=== PATIENT | male | born 1940 | race Caucasian/White ===

== ENCOUNTER → 2023-01-24 08:00 | Outpatient (REF) | payer MEDICARE, OTHER, SELFPAY | LOC: WOUND 08:00 | PROVIDERS: ATTENDING PHYSICIAN Surgery; REFERRING PHYSICIAN Family Medicine | DX: E11.621 Type 2 diabetes mellitus with foot ulcer (principal); L97.525 Non-pressure chronic ulcer of other part of left foot with muscle involvement without evidence of necrosis; E11.622 Type 2 diabetes mellitus with other skin ulcer; L97.825 Non-pressure chronic ulcer of other part of left lower leg with muscle involvement without evidence of necrosis; L97.225 Non-pressure chronic ulcer of left calf with muscle involvement without evidence of necrosis; Z79.01 Long term (current) use of anticoagulants; Z79.52 Long term (current) use of systemic steroids; Z86.73 Personal history of transient ischemic attack (TIA), and cerebral infarction without residual deficits; Z95.1 Presence of aortocoronary bypass graft | CPT/HCPCS: 11042; 29581; 97597 ==

== ENCOUNTER 2023-12-05 22:17 | Inpatient (IN) | payer MEDICARE, OTHER, SELFPAY ==
[2023-12-05 13:24] VITALS: BP 137/83
[2023-12-05 13:50] LABS: % Basophils 0.4 % (0-2); % Immature Granulocytes 0.6 % (0-0.5); % Lymphocytes 4.9 % (20.5-51.1); % Monocytes 8.5 % (1.7-9.3); % Neutrophils 85.6 % (42.2-75.2); Absolute Basophils 0.1 10^3/uL (0-0.2); Absolute Immature Granulocytes 0.2 10^3/uL (0-0.05); Absolute Lymphocytes 1.2 10^3/uL (1.2-3.4); Absolute Neutrophils 20.4 10^3/uL (1.4-6.5); Hematocrit 41.5 % (39.0-52.0); Hemoglobin 15.1 g/dL (13.0-18.0); Mean Corp Hgb Conc. 36.4 g/dL (33.0-37.0); Mean Corpuscular Hgb 31.6 pg (27.0-31.0); Mean Corpuscular Volume 86.8 fL (80.0-94.0); Mean Platelet Volume 9.4 fL (7.4-10.4); Nucleated Red Blood Cells % 0 % (-); Platelet Count 262 10^3/uL (130-400); Red Blood Cell Count 4.78 10^6/uL (4.70-6.10); White Blood Cell Count 23.9 10^3/uL (4.8-10.8)
[2023-12-05 14:03] LABS: ALT (SGPT) 29 U/L (0-50); AST (SGOT) 29 U/L (17-59); Albumin 3.9 g/dl (3.5-5.0); Alkaline Phosphatase 92 U/L (38-126); Blood Urea Nitrogen 22 mg/dl (9-20); Calcium 9.5 mg/dl (8.4-10.2); Carbon Dioxide 29 mmol/L (22-30); Chloride 99 mmol/L (98-107); Glucose 170 mg/dl (70-99); Potassium 3.7 mmol/L (3.5-5.1); Sodium 136 mmol/L (135-145); Total Bilirubin 0.5 mg/dl (0.2-1.3); Total Protein 6.9 g/dl (6.3-8.2); eGFR > 60.00
[2023-12-05 14:43] LABS: Urine Albumin 1+ (Neg - Trace); Urine Bilirubin Negative (Negative); Urine Character Clear (Clear); Urine Color Yellow; Urine Glucose Negative (Negative); Urine Ketone Trace (Negative); Urine Leukocyte 1+ (Negative); Urine Nitrite Negative (Negative); Urine Occult Blood 2+ (Negative); Urine Urobilinogen Negative (Neg - 1+)
[2023-12-05 15:49] LABS: Urine Mucus Few
[2023-12-05 15:50] LABS: Urine Bacteria Few (Negative)
[2023-12-05 16:20] VITALS: BP 135/77
[2023-12-05 20:12] VITALS: BMI 34.2
--- NOTE | 2023-12-05 20:17 | ED.GENMED ---
History of Present Illness
General
Chief Complaint: Back Pain
Source: patient
Exam Limitations: none
Time Seen by Provider: 12/05/23 19:29
Travel History
Have you had any contact with someone who has COVID-19?: No
Do you have any symptoms of coronavirus? Fever > 100 degrees, chills, cough, shortness of breath, sore throat, loss of taste or smell, muscle aches, or headache?: No
History of Present Illness
History of Present Illness:
This is a 83 year old male that comes in with c/o pain in the right low back. States that 3 weeks [place] there for 2 days. States that he was sitting on a metal chair. States that he is not sure if he got up enough as
he started with pain in his Hamstring. States that this moved down into the right calf and then to the low back. States that it just kept moving around. Then he got severe pain in his lower abd/groin. States that the pain was the worse the other
night like he was having a baby. States that know he feels lik he is having trouble keeping his urine flowing. States that he has had a fever on and off, Abd pain, diarrhea. Denies any chills, chest pain, SOB, nausea, vomiting, headache, dizziness,
urinary burning.
Past History
Past History
ED Past Medical History: CVA, HTN, Hypercholesterolemia, NIDDM, [place], Hypothyroidism and Other (Glaucoma, DVT, Necrotizing Fas LLE)
ED Past Surgical History: Cardiac (CABG, ), Tonsilectomy and Other (Sinus surgery, Necrotizing Fas LLE with multiple surgery)
Social History
Tobacco: Non-smoker
Alcohol: None
Personal:
Living: with family
Employment: Retired
Family History
Family History: Other (Noncontributory)
Review of Systems
Review of Systems
All Other Systems: ROS reviewed and negative except as documented in HPI and ROS
Constitutional: Reports fever (on and off); Denies chills
EENT: Reports no symptoms
Respiratory: Reports no symptoms; Denies cough or trouble breathing
Cardiac: Reports no symptoms; Denies chest pain
ABD/GI: Reports abdominal pain and diarrhea; Denies nausea or vomiting
: Reports difficulty voiding; Denies dysuria, frequency or urgency
Musculoskeletal: Reports back pain (Low right sided back pain into right leg)
Skin: Reports no symptoms
Neurological: Reports no symptoms; Denies dizzy or headache
Psychiatric: Reports no symptoms
Phy Exam
General Physical Exam
General Presentation: no apparent distress
General age: appears stated age
General Skin: other (Clammy)
General Habitus: elderly
General Mental: alert
General Hydration: appears well hydrated
ENT Exam
ENT Exam: TM's normal, pharynx normal and neck supple
Eye Exam
Eye Exam: EOMI
Cardiovascular Exam
Cardiovascular Exam: regular rate/rhythm and normal peripheral pulses
Pulmonary Exam
Pulmonary Exam: lungs clear, no respiratory distress, no rales, chest non tender, no crackles, no rhonchi, no wheezing and no cough
Gastrointestinal Exam
Gastrointestinal Exam: normal bowel sounds, non tender, soft, no organomegaly, no pulsatile mass and non distended
Musculoskeletal Exam
Musculoskeletal Exam: full ROM and edema (Left lower leg chronic)
Skin Exam
Skin Exam: normal color, no petechia and other (Clammy)
Psychiatric Exam
Psychiatric Exam: normal mood/affect
Course
Orders/Labs/Results
Orders:
Orders
12/05/23 13:33
Complete Blood Count/With Diff Urgent
Comprehensive Metabolic Panel Urgent
12/05/23 14:34
Urinalysis Reflex To Culture Urgent
Date Specimen was Collected: 12/05/23
Time Specimen was Collected: 14:29
Urine Microscopic Reflex Cult Urgent
Urine Culture Urgent
DESTINEE Source: U
Specimen Description:
Date Specimen was Collected: 12/05/23
Time Specimen was Collected: 14:29
12/05/23 20:16
CT Abd/pel Without Iv Or Oral Urgent
Comment:
Reason For Exam: Right sided pain
0.9% Sodium Chloride 1000 ml [Nss] 1,000 ml IV BOLUS
12/05/23 20:22
Lactic Acid Urgent
Blood Culture Q30M
DESTINEE Source: Blood/Venous
Specimen Description:
Blood Culture Q30M
DESTINEE Source: Blood/Venous
Specimen Description:
12/05/23 20:30
CefTRIAXone [Rocephin] 1,000 mg IV NOW STA
12/05/23 21:20
Consult Urology [UROLOGY CONSULT] Urgent
Consulting Provider: Yoel Morrissey
Was physician already notified: Yes
12/05/23 21:47
Admit/Transfer Patient As Directed
Co-Sign Provider:
Level of Care: Inpatient admission
Assign to:: Medical/Surgical
Physician / Group: [facility]
Diagnosis: UTI/Prostatitis
Reason for Hospitalization: IV abx
Expected length of stay greater than two midnights?: Yes
ELOS- Estimated Length of Stay in days: 3
I certify the patient meets the requirements for IP care: Yes
12/05/23 21:54
Code Status As Directed
Resuscitation Status: Full Code
12/06/23 00:22
0.9% Sodium Chloride 1000 ml [Nss] 1,000 ml IV 100 mls/hr
Acetaminophen [Tylenol] 650 mg PO Q4HPRN PRN
Dextrose 50%-Water [Dextrose 50% Syringe] 12.5 grams IV [id number] PRN
Glucagon [GlucaGen] 1 mg IM PRN PRN
12/06/23 00:22
Activity As Directed
Activity Level: Out of Bed-Early Mobility
With Assistance
Bedside Glucose Monitoring As Directed
Frequency: AC&HS
Additional Instructions:: Change to q6h if pt on TPN, tube feeding or not eating
Bladder Scan As Directed
Follow Bladder Retention/Intermittent Cath Algorithm?: Yes
PRN if no void in __ hours: 6
Frequency: Per Retention Algorithm
If Bladder Scan Result >: 400
then:: Straight cath
I&O [Intake/ Output] As Directed
Frequency: q12h
Straight Cath As Directed
Frequency: Per Retention Algorithm
Additional Instructions: straight cath as needed per acute urinary retention algorithm for 24 hrs
Additional Instructions: for bladder scan greater than 400 mL
Vital Signs As Directed
Frequency: Per unit guidelines
Weight As Directed
Frequency: Daily
12/06/23 06:00
Basic Metabolic Panel IN AM
Complete Blood Count/No Diff IN AM
Glycohemoglobin (HgbA1c) IN AM
Levothyroxine [Synthroid] 88 mcg PO DAILY@0600
12/06/23 07:30
Insulin Aspart Corrective Low [Novolog Flexpen-Low Resistance] See Protocol SC AC
12/06/23 08:00
Amlodipine [Norvasc] 5 mg PO DAILY
Apixaban [Eliquis] 5 mg PO BID
Ascorbic Acid [Vitamin C] 500 mg PO BID
Escitalopram Oxalate [Lexapro] 5 mg PO DAILY
Hydroxychloroquine [Plaquenil] 400 mg PO DAILY
Metoprolol [Lopressor] 25 mg PO BID
Rosuvastatin Calcium [Crestor] 5 mg PO DAILY
Tamsulosin [Flomax] 0.4 mg PO DAILY
Timolol Maleate/Dorzolam HCl [Cosopt Eye Drops] 1 drop LEFT EYE BID
12/06/23 Dinner
2000 calorie (17 carb) Diabetic
12/06/23 20:00
CefTRIAXone [Rocephin] 1,000 mg IV Q24H
Abnormal Lab Results
12/05/23 12/05/23
13:33 14:34
WBC 23.9 H 10^3/uL
(4.8-10.8)
MCH 31.6 H pg
(27.0-31.0)
Abs Immat Gran (auto) 0.2 H 10^3/uL
(0-0.05)
Absolute Neuts (auto) 20.4 H 10^3/uL
(1.4-6.5)
Absolute Monos (auto) 2.0 H 10^3/uL
(0.1-0.6)
Immature Gran % 0.6 H %
(0-0.5)
Neutrophils % 85.6 H %
(42.2-75.2)
Lymphocytes % 4.9 L %
(20.5-51.1)
BUN 22 H mg/dl
(9-20)
Glucose 170 H mg/dl
(70-99)
Urine Ketones Trace A
(Negative)
Ur Occult Blood Reflex 2+ A
(Negative)
Leukocyte Esterase Rfl 1+ A
(Negative)
Urine RBC 3-6 A /HPF
(0-2)
Urine WBC (Reflex) 11-15 A /HPF
(0-5)
Urine Bacteria (Reflex) Few A
(Negative)
Urine Albumin (Reflex) 1+ A
(Neg - Trace)
12/05/23 13:33
12/05/23 13:33
Leukocytosis, Dehydration. Glucose nonfasting. Urinary tract infection. Lactic acid 1.6,
Vital Signs
Initial and Last Documented VS:
Initial Vital Signs
Temp Pulse Resp BP Pulse Ox
97.9 F 93 18 137/83 96
12/05/23 13:24 12/05/23 13:24 12/05/23 13:24 12/05/23 13:24 12/05/23 13:24
Last Documented Vital Signs
Temp Pulse Resp BP Pulse Ox
98.7 F 100 14 149/84 96
12/06/23 00:33 12/06/23 00:33 12/06/23 00:33 12/06/23 00:33 12/06/23 01:20
MDM/Problems Addressed
Differential Diagnosis Includes:
Renal calculus, UTI
MDM/Problems Addressed:
This is a 83 year old male that comes in with c/o low back pain/abd pain and right leg pain. States that the pain [place] 2 [place]. States that the pain started in the right low back and then moved to the right leg,
calf and then to the lower abd/groin. States that he has fever on and off
Will get labs, give IV fluids. Urine and get CT scan to r/o renal calculus.
Back into see patient. Explained that his CT shows that he has a 1mm stone on the left ureter. Patient has Leukocytosis and his urine does look infected. Patient has been running a fever. Will admit patient. Hosptialst and Urologist notified. Will
give IV antibiotics.
Chronic conditions affecting care: DM
Acute Exacerbation and/or Progression of Chronic Illness:
NA
*Radiology
Radiology exam reviewed: radiology read reviewed (CT-1mm nonobstructing left renal stone. Moderate fecal material in the colon. MIld diverticulosis. Moderate prostate hypertrophy. Mild diffuse bladder wall thickening possibly partially due to
limited distention. Cystitis and bladder outlet obstruction cannot be excluded. )
*Critical Care Note
Total Time (30-74mins, 75-104mins- exclusive of procedures): Not Applicable
ED Attending Note
-
Portions of this chart may have been created with voice recognition software.� Occasional wrong word or��sound alike� substitutions may have occurred due to the inherent limitations of voice recognition software.
Discharge Plan
Departure
Patient Disposition: Admit
Date of Disposition: 12/05/23
Time of Disposition: 21:23
Admit to: Med/Surg
Presentation/result/management discussed w/ accepting MD/DO: Hospitalist
Patient with high blood pressure during this ER visit?: Yes
Condition: Good
Covid-19: Not Applicable
Discharge Problem:
Fever, Acute UTI (urinary tract infection), Left renal stone
Interventions
Interventions:
*Risk Screen - Suicide Last Done: 12/05/23 13:24
*General Assessment Last Done: 12/05/23 13:24
*Neglect/Abuse Screening Last Done: 12/05/23 13:24
ED- Fall Risk Assessment Last Done: 12/06/23 00:20
*ED COVID-19 Vaccine History Last Done: 12/05/23 13:24
*Nursing Disposition Last Done: 12/06/23 00:20
ED-Musculoskeletal Assessment Last Done: 12/05/23 20:11
Discharge Date and Time
Discharge Date/Time: 12/06/23 00:20
[2023-12-05] MEDS: NSS 1000 IV (20:27)
[2023-12-05 20:41] VITALS: BP 126/80
[2023-12-05] MEDS: ROCEPHIN 1000 MG IV (20:43)
[2023-12-05 20:53] LABS: Lactic Acid 1.6 mmol/L (0.7-2.0)
[2023-12-05 21:00] VITALS: BP 131/75
--- NOTE | 2023-12-05 21:56 | HPS.HSE ---
Family Physician
-
Family Physician: Eddy Clark
Chief Complaint
-
Urine Symptoms
History of Present Illness
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 Since then he has noted urinary frequency, urgency and difficulty with stream. He reports some discomfort behind his scrotal area particular when sitting. He reports some right sided back pain that was radiating down to
the right groin/leg, but states that is improved. He denies fevers, sweats or chills.
Medical History
Past Medical History
Past Medical History: Reports Other
Additional Past Medical History:
Left Lower Ext Necrotizing Fascitis
Chronic Left Lower Ext DVT
Coronary Artery Disease
Diabetes Mellitus, Type II
Essential Hypertension
Hyperlipidemia
Hypothyroidism
Chronic Myositis
Glaucoma
Past Surgical History: Reports Other
Additional Past Surgical History:
CABG
Incision and Drainage of Left Lower and Distal Lower Extremity
Rotator Cuff Repair
Social History
Tobacco: Non-smoker
Alcohol: None
Family History
Family History: Not pertinent
Allergies / Home Medications
Allergies reflects when Allergies were last updated in [employer].
Home Medications with original date entered in [employer]
Allergy/Medication List:
Allergies
Allergy/AdvReac Type Severity Reaction Status Date / Time
No Known Allergies Allergy Verified 04/01/21 23:51
Home Medications
amlodipine 5 mg tablet 5 mg PO DAILY Blood pressure 08/02/19
folic acid 1 mg tablet 1 mg PO DAILY Supplement 08/02/19
hydroxychloroquine 200 mg tablet 400 mg PO DAILY myositis 08/02/19
levothyroxine 88 mcg tablet 88 mcg PO DAILY AT 0700 #0 tabs 10/10/22
apixaban 5 mg tablet (Eliquis) 5 mg PO BID 12/05/23
ascorbic acid (vitamin C) 500 mg tablet (Vitamin C) 500 mg PO BID 12/05/23
bimatoprost 0.01 % eye drops (Lumigan) 1 drp LEFT EYE QPM 12/05/23
carboxymethylcellulose 0.5 %-glycerin 0.9 % eye drops (Refresh Optive) 1 drp BOTH EYES BIDPRN PRN dryness 12/05/23
dorzolamide-timolol (PF) 2 %-0.5 % eye drops in a dropperette 1 drp LEFT EYE BID 12/05/23
escitalopram oxalate 5 mg tablet (Lexapro) 5 mg PO DAILY 12/05/23
hydrochlorothiazide 25 mg tablet 25 mg PO DAILY 12/05/23
magnesium oxide 500 mg capsule 500 mg PO DAILY 12/05/23
metoprolol tartrate 25 mg tablet 25 mg PO BID 12/05/23
netarsudil 0.02 % eye drops (Rhopressa) 1 drp LEFT EYE QPM 12/05/23
potassium 99 mg tablet 595 mg PO DAILY 12/05/23
rosuvastatin 5 mg tablet 5 mg PO DAILY 12/05/23
therapeutic multivitamin 1 tab PO DAILY 12/05/23
Review of Systems
-
A 12 point ROS was completed and negative except as noted: Yes
Constitutional: Denies Fever or Chills
Respiratory: Denies Cough or Trouble Breathing
Cardiac: Denies Chest Pain or Palpitations
Abdomen/GI: Denies Abdominal Pain, Nausea, Vomiting or Diarrhea
: Reports See HPI
Physical Exam
Vital Signs
Vital Signs
Temp Pulse Resp BP Pulse Ox
99.5 F 86 17 135/77 95
12/05/23 16:20 12/05/23 16:20 12/05/23 16:20 12/05/23 16:20 12/05/23 16:20
Physical Exam
General: Comfortable and Conversant
HEENT: Anicteric and Moist mucous membranes
Respiratory: Clear and Non Labored Respirations
Cardiac: S1/S2 and Regular Rhythm
GI: Soft, Non Tender and Other (Protuberant)
Musculoskeletal: No Clubbing, No Cyanosis and No Edema
Skin: Warm, Dry and Other (Multiple well healed surgical scars LLE)
Neuro: Awake, Alert, Oriented and Nonfocal/grossly intact
Psych: Calm
Laboratory Results
-
12/05/23 13:33
12/05/23 13:33
Laboratory Results
Lactic Acid 1.6 mmol/L (0.7-2.0) 12/05/23 20:22
Total Bilirubin 0.5 mg/dl (0.2-1.3) 12/05/23 13:33
AST 29 U/L (17-59) 12/05/23 13:33
ALT 29 U/L (0-50) 12/05/23 13:33
Alkaline Phosphatase 92 U/L (38-126) 12/05/23 13:33
Data Reviewed
-
Lab Data: Labs Reviewed by me
Impression/Plan
-
Urinary Tract Infection, possible Prostatitis
-Consult Urology
-Continue Ceftriaxone
-Continue Flomax
-Await urine and blood cultures
Diabetes Mellitus, Type II
-Check HgbA1c
-Monitor sugars and continue coverage insulin
Essential Hypertension
-Continue amlodipine and metoprolol
-Hold HCTZ
Hyperlipidemia
-Continue Crestor
Hypothyroidism
-Continue levothyroxine
Chronic Myositis
-Continue hydroxychloroquine and prednisone
-No need for stress dose steroids
Chronic Left Lower Ext DVT
-Continue Eliquis
Hx CAD s/p CABG
Code Status: Full Code
--- NOTE | 2023-12-05 21:56 | W.PN.UPDATE ---
Update Note
Progress Note Update
This is an addendum to the H&P written by Erika Arzola on 12/05/2023.
83-year-old male past medical history of myositis, left lower extremity DVT on Eliquis, diabetes, hypertension, hypothyroidism, hyperlipidemia, here with right lower back pain rating down the leg now resolved, scrotal discomfort, urinary voiding
symptoms since sitting on a metal chair at a [employer] a few weeks ago.
Labs show leukocytosis. CT abdomen pelvis showed 1 mm nonobstructing left renal stone, moderate prostate hypertrophy, mild diffuse bladder wall thickening. Symptoms are consistent with UTI with BPH, possible acute prostatitis. Check urine
culture, blood cultures. IV fluids, ceftriaxone. Start tamsulosin. Urology consulted. Hold hydrochlorothiazide.
Right lower back pain likely due to sciatica is now resolved and likely to be unrelated to renal stone.
[2023-12-05 22:00] VITALS: BP 135/77
[2023-12-05 23:34] VITALS: BP 152/84
[2023-12-06] MEDS: NSS 1000 IV ×3 (00:30→20:29)
[2023-12-06 00:33] VITALS: BP 149/84
[2023-12-06 00:36] VITALS: BMI 33.3
--- NOTE | 2023-12-06 01:32 | PTCARENOTE ---
Received patient from ED via stretcher w/ belongings; [employer] orders> T98.7, HT100, RR14, BP149/84, pox96% room air. No c/o pain. NSS at 100ml/hr infusing #20 RAC
PMH and medications reviewed by this RN and patient. Plan of care discussed.
Pt has partial upper dentures. [place] [employer]- left b/l hearing aides at home.
Call within reach.
[2023-12-06] MEDS: SYNTHROID 88 MCG PO (05:13)
[2023-12-06 05:16] VITALS: BMI 33.3
[2023-12-06 06:38] LABS: Hematocrit 37.3 % (39.0-52.0); Hemoglobin 13.4 g/dL (13.0-18.0); Mean Corp Hgb Conc. 35.9 g/dL (33.0-37.0); Mean Corpuscular Hgb 31.9 pg (27.0-31.0); Mean Corpuscular Volume 88.8 fL (80.0-94.0); Mean Platelet Volume 9.3 fL (7.4-10.4); Platelet Count 239 10^3/uL (130-400); Red Cell Dist. Width 13.2 % (11.5-14.5); White Blood Cell Count 20.6 10^3/uL (4.8-10.8)
[2023-12-06 07:07] LABS: Blood Urea Nitrogen 21 mg/dl (9-20); Calcium 8.7 mg/dl (8.4-10.2); Carbon Dioxide 30 mmol/L (22-30); Chloride 99 mmol/L (98-107); Estimated Creatinine Clearance 74 ml/min; Glucose 131 mg/dl (70-99); Sodium 138 mmol/L (135-145); eGFR > 60.00
[2023-12-06 07:10] VITALS: BP 112/61
[2023-12-06 07:26] LABS: Glucose - Point of Care 137 mg/dl (70-99)
[2023-12-06] MEDS: CRESTOR 5 MG PO (08:45)
[2023-12-06] MEDS: FLOMAX 0.400000000000000022 MG PO (08:45)
[2023-12-06] MEDS: ELIQUIS 5 MG PO ×2 (08:45→20:30)
[2023-12-06] MEDS: PLAQUENIL 400 MG PO (08:45)
[2023-12-06] MEDS: VITAMIN C 500 MG PO ×2 (08:45→20:30)
[2023-12-06] MEDS: NORVASC 5 MG PO (08:45)
[2023-12-06] MEDS: COSOPT EYE DROPS 1 DROP LEFT EYE ×2 (08:46→20:30)
[2023-12-06] MEDS: LOPRESSOR 25 MG PO ×2 (08:46→20:31)
[2023-12-06] MEDS: LEXAPRO 5 MG PO (08:46)
[2023-12-06 08:56] LABS: Glycohemoglobin (HgbA1c) 6.7 % (4.0-5.6)
--- NOTE | 2023-12-06 09:36 | CONS.URO ---
Consultation
-
Date/Time Consultation Performed: 12/06/23704
Performing Provider: Ghanshyam
Reason for Consultation: UTI
Medical History
History of Present Illness
83 yo male who presented to [facility] with riight lower back pain rating down the leg and urinary voiding symptoms: frequency, urgency
He reports no antecedent urologic history.
Past Medical History
Past Medical History: Other (CVA, HTN, Hypercholesterolemia, NIDDM, [place], Hypothyroidism, Glaucoma, DVT, Necrotizing Fasciitis - LLE)
Past Surgical History: Other (CABG Incision and Drainage of Left Lower and Distal Lower Extremity Rotator Cuff Repair)
Family History
Family History: Reviewed & Not Pertinent
Allergies/Home Medications
Allergies
Allergy/AdvReac Type Severity Reaction Status Date / Time
No Known Allergies Allergy Verified 04/01/21 23:51
Home Medications
�Medication �Instructions �Recorded �Confirmed �Type
amlodipine 5 mg tablet 5 mg PO DAILY Blood pressure 08/02/19 12/06/23 History
folic acid 1 mg tablet 1 mg PO DAILY Supplement 08/02/19 12/05/23 History
hydroxychloroquine 200 mg tablet 400 mg PO DAILY myositis 08/02/19 12/05/23 History
levothyroxine 88 mcg tablet 88 mcg PO DAILY AT 0700 #0 tabs 10/10/22 12/05/23 Rx
apixaban 5 mg tablet (Eliquis) 5 mg PO BID 12/05/23 12/05/23 History
ascorbic acid (vitamin C) 500 mg 500 mg PO BID 12/05/23 12/06/23 History
tablet (Vitamin C)
bimatoprost 0.01 % eye drops 1 drp LEFT EYE QPM 12/05/23 12/06/23 History
(Lumigan)
carboxymethylcellulose 0.5 1 drp BOTH EYES BIDPRN PRN dryness 12/05/23 12/06/23 History
%-glycerin 0.9 % eye drops
(Refresh Optive)
dorzolamide-timolol (PF) 2 %-0.5 % 1 drp LEFT EYE BID 12/05/23 12/05/23 History
eye drops in a dropperette
escitalopram oxalate 5 mg tablet 5 mg PO DAILY 12/05/23 12/05/23 History
(Lexapro)
hydrochlorothiazide 25 mg tablet 25 mg PO DAILY 12/05/23 12/05/23 History
magnesium oxide 500 mg capsule 500 mg PO DAILY 12/05/23 12/05/23 History
metoprolol tartrate 25 mg tablet 25 mg PO BID 12/05/23 12/05/23 History
netarsudil 0.02 % eye drops 1 drp LEFT EYE QPM 12/05/23 12/06/23 History
(Rhopressa)
potassium 99 mg tablet 595 mg PO DAILY 12/05/23 12/05/23 History
rosuvastatin 5 mg tablet 5 mg PO DAILY 12/05/23 12/06/23 History
therapeutic multivitamin 1 tab PO DAILY 12/05/23 12/05/23 History
Physical Exam
Vital Signs
Vital Signs
Temp Pulse Resp BP Pulse Ox
99.1 F 90 18 112/61 94
12/06/23 07:10 12/06/23 08:46 12/06/23 07:10 12/06/23 08:46 12/06/23 07:10
Lab / Testing Results
Laboratory Results
12/06/23 06:18
12/06/23 06:18
Physical Exam
elderly male on ED bed
General: No Apparent Distress
GI: Soft and Non Tender
Genito-urinary: No Costovertebral Tend
Neuro: Awake
Psych: Calm
Assessment / Plan
-
BPH with SNOWDEN
suspected UTI/bacterial prostatitis
1 mm non-obstructing left renal stone
Rec:
tx UTI per micro
no indication for further urological evaluation or treatment as an inpatient
Data Reviewed
-
CT Scan: Image personally visualized and interpreted
Lab Data: Labs Reviewed
Old Records: Reviewed
[2023-12-06 10:10] VITALS: BP 133/75
[2023-12-06 11:05] VITALS: BP 104/55
--- NOTE | 2023-12-06 11:25 | W.PN.HOSP.TC ---
Addendum entered and electronically signed by Ben Yeboah MD 12/06/23 11:30:
Hypokalemia -replete
Original Note:
Today's Communication/Plan
-
Continue with antibiotics
Follow culture data.
Assessment / Plan
Assessment / Plan
Urinary Tract Infection, possible Prostatitis
-Continue Ceftriaxone
-Continue Flomax
-Await urine and blood cultures
-Urology input noted-no indication for further surgical evaluation and treatment.
Diabetes Mellitus, Type II
-Check HgbA1c
-Monitor sugars and continue coverage insulin
Essential Hypertension
-Continue amlodipine and metoprolol
-Hold HCTZ
Hyperlipidemia
-Continue Crestor
Hypothyroidism
-Continue levothyroxine
Chronic Myositis
-Continue hydroxychloroquine and prednisone
-No need for stress dose steroids
Chronic Left Lower Ext DVT
-Continue Eliquis
Hx CAD s/p CABG
Code Status: Full Code
Anticipated Discharge: 24 - 48 hours
Subjective/Interval History
-
Date of Service: December 06, 2023
Some difficulty with passing urine but able to do so.
Had 1 loose bowel movement today.
No fever or chills.
Sweating with a bowel movement today.
Objective Data
-
Labs:
Laboratory Results
12/06/23
06:18
WBC 20.6 H
Hgb 13.4
Hct 37.3 L
Plt Count 239
Sodium 138
Potassium 3.0 L
Chloride 99
Carbon Dioxide 30
BUN 21 H
Creatinine 0.9
Glucose 131 H
Calcium 8.7
Vital Signs:
Vital Signs
Temp Pulse Resp BP Pulse Ox
98.1 F 72 18 104/55 94
12/06/23 11:05 12/06/23 11:05 12/06/23 11:05 12/06/23 11:05 12/06/23 11:05
I&O
12/05/23 12/06/23 12/07/23
06:59 06:59 06:59
Intake Total 1320 / 1320
Output Total 200 / 200
Balance 1120 / 1120
Review of Systems
-
Respiratory: Denies Trouble Breathing
Cardiac: Denies Chest Pain
Abdomen/GI: Denies Abdominal Pain
Neuro: Denies Dizzy
Physical Exam
-
General: No Apparent Distress
HEENT: Moist Mucous Membranes
Respiratory: Clear to Auscultation
Cardiac: Regular Rhythm and S1/S2
GI: Soft and Nontender
Neuro: AO x 3
Data Reviewed
-
Labs: Labs Reviewed by me
[2023-12-06 11:46] LABS: Glucose - Point of Care 174 mg/dl (70-99)
[2023-12-06] MEDS: KCL 40 MEQ PO (13:19)
[2023-12-06 15:10] VITALS: BP 135/67
--- NOTE | 2023-12-06 16:18 | CM ---
Attempted initial assessment x2. Patient sleeping soundly, not awoken by calling him name. Will follow.
[2023-12-06 17:54] LABS: Glucose - Point of Care 120 mg/dl (70-99)
[2023-12-06] MEDS: GLUCOPHAGE 500 MG PO (18:31)
[2023-12-06] MEDS: ROCEPHIN 1000 MG IV (20:30)
[2023-12-06] MEDS: STERILE WATER FOR INJECTION 10 ML IV (20:30)
[2023-12-06 21:28] LABS: Glucose - Point of Care 139 mg/dl (70-99)
[2023-12-06 22:54] VITALS: BP 120/66
[2023-12-07 05:25] LABS: Hemoglobin 13.9 g/dL (13.0-18.0); Mean Corp Hgb Conc. 34.8 g/dL (33.0-37.0); Mean Corpuscular Volume 92.2 fL (80.0-94.0); Mean Platelet Volume 9.6 fL (7.4-10.4); Platelet Count 256 10^3/uL (130-400); Red Blood Cell Count 4.34 10^6/uL (4.70-6.10); Red Cell Dist. Width 13.1 % (11.5-14.5); White Blood Cell Count 12.4 10^3/uL (4.8-10.8)
[2023-12-07] MEDS: SYNTHROID PO (05:48)
[2023-12-07 05:49] LABS: Blood Urea Nitrogen 22 mg/dl (9-20); Calcium 8.5 mg/dl (8.4-10.2); Carbon Dioxide 27 mmol/L (22-30); Chloride 106 mmol/L (98-107); Estimated Creatinine Clearance 83 ml/min; Glucose 127 mg/dl (70-99); Potassium 3.7 mmol/L (3.5-5.1); Sodium 142 mmol/L (135-145); eGFR > 60.00
[2023-12-07] MEDS: SYNTHROID 88 MCG PO (05:56)
[2023-12-07 05:57] VITALS: BMI 33.6
[2023-12-07 06:54] LABS: Glucose - Point of Care 127 mg/dl (70-99)
[2023-12-07 07:10] VITALS: BP 140/76
--- NOTE | 2023-12-07 07:31 | W.PN.URO.CBU ---
Today's Communication / Plan
-
po Tamsulosin and Finasteride
outpatient f/u
Assessment / Plan
-
Prostate enlargement with voiding symptoms
no UTI
asymptomatic, tiny renal stone
Diagnosis
-
Date of Service: December 07, 2023
-
Patient Diagnosis:
Irritative and Obstructive Voiding Sx with significant Prostatic Enlargement
1 mm non-obstructive renal stone
no gudelia yuan UTI
Objective
-
Vital Signs
Temp Pulse Resp BP Pulse Ox
97.5 F 75 18 140/76 97
12/07/23 07:10 12/07/23 07:10 12/07/23 07:10 12/07/23 07:10 12/07/23 07:10
Intake and Output
12/06/23 12/07/23 12/08/23
06:59 06:59 06:59
Intake Total 1320 / 1320 3000 / 3000
Output Total 200 / 200 525 / 525
Balance 1120 / 1120 2475 / 2475
Intake:
Oral fluids 720 / 720 1800 / 1800
IV fluids (Total) 600 / 600 1200 / 1200
Output:
Urine, Voided 200 / 200 525 / 525
Other:
Number of approximated SMALL 7
amounts of urine
Number of approximated MODERATE 1 2
amounts of urine
How many times incontinent 1
SATURATED amount urine
Laboratory Results
12/07/23 04:39
12/07/23 04:39
urine cx: no growth
Physical Exam
-
General - well developed, well nourished, no acute distress
Chest - clear bilaterally
Abdomen - soft, non-tender, positive bowel sounds, no CVAT, no incisional pain or distention
Genitalia - normal
Rectal - normal
Skin - warm & dry with no rash
Neuro - AOx3, no motor deficits
Extremities - no clubbing, no cyanosis, no edema
Incision - clean, dry
Dressing - clean, dry, intact
[2023-12-07] MEDS: FLOMAX 0.400000000000000022 MG PO (08:13)
[2023-12-07] MEDS: LEXAPRO 5 MG PO (08:13)
[2023-12-07] MEDS: COSOPT EYE DROPS 1 DROP LEFT EYE ×2 (08:13→19:58)
[2023-12-07] MEDS: NSS 1000 IV (08:13)
[2023-12-07] MEDS: PLAQUENIL 400 MG PO (08:13)
[2023-12-07] MEDS: VITAMIN C 500 MG PO ×2 (08:14→19:58)
[2023-12-07] MEDS: GLUCOPHAGE 500 MG PO (08:14)
[2023-12-07] MEDS: LOPRESSOR 25 MG PO ×2 (08:14→19:58)
[2023-12-07] MEDS: NORVASC 5 MG PO (08:14)
[2023-12-07] MEDS: CRESTOR 5 MG PO (08:14)
[2023-12-07] MEDS: ELIQUIS 5 MG PO ×2 (08:14→19:58)
--- NOTE | 2023-12-07 11:02 | PN.CDI ---
CDI
- -
CDI:
Physician Documentation Request
Admit Date: 12/05/23 22:17
Dear Doctor Obinna,
Clinical Indicators:
Patient admitted with suspected UTI.
Patient presented with lower back pain, urinary frequency and urgency.
6/ PN, '...possible Prostatitis...-Continue Ceftriaxone-Continue Flomax'
Please clarify which of the following accurately represents the acuity of the possible prostatitis. Possible options might include:
Acute Prostatitis
Acute on Chronic Prostatitis
Chronic Prostatitis
Prostatitis ruled out
Other, please specify
Use of terms such as suspected, likely, concern for, or probable (associated with a specific diagnosis that is being evaluated, monitored, or treated as if it exists) are acceptable and can be coded in the inpatient setting, when documented at the
time of discharge.
Thank you,
LEXY Mcallister RN
CDI Specialist
available via tiger text
Please use your independent medical judgment in providing your response.
[2023-12-07 11:38] LABS: Glucose - Point of Care 110 mg/dl (70-99)
[2023-12-07] MEDS: IMODIUM 2 MG PO (11:46)
--- NOTE | 2023-12-07 11:55 | W.PN.HOSP.TC ---
Today's Communication/Plan
-
Continue ceftriaxone
Consult ID
Follow bladder scan
DC in a.m. if continued improvement with his stream and lower symptoms
Assessment / Plan
Assessment / Plan
Urinary Tract Infection with Prostatitis
- Cx neg -both urine and blood.
- With lower tract symptoms ,deep perineal pain , mod prostamegaly all suggest prostatitis
-Is clinically improving as well as his white count is improving.
-Continue Ceftriaxone
-Continue Flomax
-Consult ID
-Follow bladder scan
-Urology input noted-no indication for further surgical evaluation and treatment.
Diabetes Mellitus, Type II
- HgbA1c 6.7
-Monitor sugars and continue coverage insulin
Essential Hypertension
-Continue amlodipine and metoprolol
-Hold HCTZ
Hyperlipidemia
-Continue Crestor
Hypothyroidism
-Continue levothyroxine
Chronic Myositis
-Continue hydroxychloroquine and prednisone
-No need for stress dose steroids
Chronic Left Lower Ext DVT
-Continue Eliquis
Hx CAD s/p CABG
Code Status: Full Code
Anticipated Discharge: 24 - 48 hours
Subjective/Interval History
-
Date of Service: December 07, 2023
Urinary Stream is better today. Still rojas when he pees.Urine. And he has a deep perineal pain as well. No fever or chills. No nausea vomiting. Having issues with some loose stools-had 3 today so far.
Objective Data
-
Labs:
Laboratory Results
12/07/23
04:39
WBC 12.4 H
Hgb 13.9
Hct 40.0
Plt Count 256
Sodium 142
Potassium 3.7
Chloride 106
Carbon Dioxide 27
BUN 22 H
Creatinine 0.8
Glucose 127 H
Calcium 8.5
Vital Signs:
Vital Signs
Temp Pulse Resp BP Pulse Ox
97.5 F 75 18 140/76 97
12/07/23 07:10 12/07/23 07:10 12/07/23 07:10 12/07/23 08:14 12/07/23 09:45
I&O
12/06/23 12/07/23 12/08/23
06:59 06:59 06:59
Intake Total 1320 / 1320 3000 / 3000
Output Total 200 / 200 525 / 525
Balance 1120 / 1120 2475 / 2475
Review of Systems
-
Constitutional: Denies Fever
EENT: Denies Sore Throat
Respiratory: Denies Trouble Breathing
Cardiac: Denies Chest Pain
Neuro: Denies Dizzy
Physical Exam
-
General: No Apparent Distress
HEENT: Moist Mucous Membranes
Respiratory: Clear to Auscultation
Cardiac: Regular Rhythm and S1/S2
GI: Soft
Neuro: AO x 3
Psych: Negative Confused
Data Reviewed
-
Labs: Labs Reviewed by me
--- NOTE | 2023-12-07 12:35 | CM ---
Initial assessment completed with patient who lives with his in a 1 story home with 1 step to enter. Has a RW in home but does not use, no in-home services. [employer] was independent and drove, no psychiatric hospitalizations. Pharmacy is [facility] in
[place] and PCP is Dr. Eddy Clark Jr.
Anticipate no needs at discharge.
--- NOTE | 2023-12-07 15:33 | CON.ID ---
Consultation
-
Date/Time Consultation Requested: December 07, 2023 0900
Date/Time Consultation Performed: December 07, 2023 1530
Requesting Provider: Dr. Ben Yeboah
Performing Provider: Dr. Elena Mercado
Reason for Consultation: Prostatitis
Chief Complaint / Past History
Chief Complaint
Slow urine stream
History of Present Illness
83-year-old male with history of diabetes mellitus, CAD, myositis on chronic low-dose prednisone who presented to the hospital on December 04 due to voiding problems. He reports that he was at a [employer] market on Tuesday. There were a lot of customers.
He had prolonged sitting on a hard metal chair. He developed discomfort at the perineal area. He developed urinary urgency but with very little urine output. He felt that he was retaining urine and urine was dripping out. His condition worsened
and therefore he came to the hospital on December 04. White count 23.9. CAT scan of the abdomen pelvis showed moderate and large prostate. He was started on ceftriaxone. He is also now on Flomax. Patient reports since being in the hospital the
urinary stream is flowing better but still weak. No further urinary urgency. Deep perineal pain also improving. No history of UTI in the past. No fevers or chills. No flank pain. The only chief complaint right now is diarrhea for the past 2
days. C. difficile negative.
Past History
Additional Past Medical History:
Diabetes mellitus
CAD status post CABG
Hypertension
Hypothyroidism
myositis (plaquenil, prednisone 5 mg)
hx necrotizing fascitis (06/23/22, s pyogenes) of the left lower extremity s/p I+D
Allergy History:
No Known Allergies Allergy (Verified 04/01/21 23:51)
Medications Reviewed: Yes
Current Antibiotics:
Ceftriaxone
Social History
Tobacco: Non-Smoker
Alcohol: None
Drug: None
Family History
Family History: Not Pertinent
Review of Systems
Review of Systems
General: Negative Fever, Chills or Change in Appetite
HEENT: Negative Sinus Problems or Headache
Cardiovascular: Negative Chest Pain, Edema or Palpitations
Respiratory: Negative Dyspnea or Cough
Gasteroenterology: Negative Nausea or Vomiting
Genital / Urological: Negative Dysuria, Hematuria or Flank Pain
Endocrine: Negative Weakness
Neurological: Negative Headache or Dizziness
All systems: All other systems were reviewed and were negative
Vital Signs
Temp Pulse Resp BP Pulse Ox
97.5 F 75 18 140/76 97
12/07/23 07:10 12/07/23 07:10 12/07/23 07:10 12/07/23 08:14 12/07/23 09:45
Physical Exam
Physical Exam
Constitutional: No Acute Distress and Comfortable
Cardiovascular: Regular Rate
Pulmonary: Clear
Gastrointestinal: Soft, Non Tender, Non Distended and Normal Bowel Sounds
Genito-Urinary: Negative CVA Tenderness
Extremities: Venous Insufficiency (RLE); Negative Edema
Neurological: AO x 3
Lab / Diagnostic Study Results
12/07/23 04:39
12/07/23 04:39
Abs Immat Gran (auto) 0.2 10^3/uL (0-0.05) H 12/05/23 13:33
Absolute Neuts (auto) 20.4 10^3/uL (1.4-6.5) H 12/05/23 13:33
Absolute Lymphs (auto) 1.2 10^3/uL (1.2-3.4) 12/05/23 13:33
Absolute Monos (auto) 2.0 10^3/uL (0.1-0.6) H 12/05/23 13:33
Absolute Basos (auto) 0.1 10^3/uL (0-0.2) 12/05/23 13:33
Immature Gran % 0.6 % (0-0.5) H 12/05/23 13:33
Neutrophils % 85.6 % (42.2-75.2) H 12/05/23 13:33
Lymphocytes % 4.9 % (20.5-51.1) L 12/05/23 13:33
Monocytes % 8.5 % (1.7-9.3) 12/05/23 13:33
Eosinophils % 0.0 % (0-6) 12/05/23 13:33
Basophils % 0.4 % (0-2) 12/05/23 13:33
Lactic Acid 1.6 mmol/L (0.7-2.0) 12/05/23 20:22
Microbiology Results
Micro:
12/07/23 14:00 C. difficile GDH Antigen & Toxins - Final
Feces/Stool Negative for toxigenic C.difficile
12/06/23 08:29 MRSA Screen - Final
Nose No Methicillin Resistant Staphylococcus aureus isolated.
12/05/23 20:22 Blood Culture - Preliminary
Blood/Venous No Growth in 24 hours- Final report to follow
12/05/23 20:22 Blood Culture - Preliminary
Blood/Venous No Growth in 24 hours- Final report to follow
12/05/23 14:34 Urine Culture - Final
Urine No Significant Growth
12/05/23 CT a/p : 1 mm nonobstructing left renal stone. Moderate fecal material in the colon. Moderate prostate hypertrophy. Mild diffuse bladder wall thickening possibly partially due to limited distention. Cystitis and bladder outlet obstruction
cannot be excluded.
Assessment / Plan
# BPH with acute weak stream
-Improving on Flomax
# Perineal pain
- Low suspicion for prostatitis
Urine culture negative
- Suspect musculoskeletal pain and/or noninfectious prostate pain from prolonged sitting on hard chair
- DC ceftriaxone.
# Abx- associated diarrhea
- C. diff neg
- DC ceftriaxone
# Leukocytosis trending down
ID will sign off. Call prn.
[2023-12-07 15:40] VITALS: BP 146/84
[2023-12-07 16:32] LABS: Glucose - Point of Care 129 mg/dl (70-99)
[2023-12-07 21:24] LABS: Glucose - Point of Care 176 mg/dl (70-99)
[2023-12-07 23:33] VITALS: BP 128/74
[2023-12-08 05:50] VITALS: BMI 33.7
[2023-12-08] MEDS: SYNTHROID 88 MCG PO (05:52)
[2023-12-08 07:10] VITALS: BP 153/93
[2023-12-08 08:02] LABS: Glucose - Point of Care 128 mg/dl (70-99)
--- NOTE | 2023-12-08 08:03 | W.PN.HOSP.TC ---
Today's Communication/Plan
-
Will have PT assessment also add some Tylenol for his pain
Assessment / Plan
Assessment / Plan
Urinary Tract Infection with Prostatitis suspect on presentation
- Cx neg -both urine and blood.
- With lower tract symptoms ,deep perineal pain , mod prostamegaly all suggest prostatitis/low suspicion for prostatitis both from urology and ID
-Is clinically improving as well as his white count is improving.
-Continue Flomax
-Consult ID appreciated and discontinued ceftriaxone/low suspicion for UTI or prostatitis
-Follow bladder scan
-Urology input noted-no indication for further surgical evaluation and treatment.
-Still some discomfort will obtain physical therapy assessment for discharge plan
Diabetes Mellitus, Type II
- HgbA1c 6.7
-Monitor sugars and continue coverage insulin
Essential Hypertension
-Continue amlodipine and metoprolol
-Hold HCTZ
Hyperlipidemia
-Continue Crestor
Hypothyroidism
-Continue levothyroxine
Chronic Myositis
-Continue hydroxychloroquine and prednisone
-No need for stress dose steroids
Chronic Left Lower Ext DVT
-Continue Eliquis
Hx CAD s/p CABG
Code Status: Full Code
Anticipated Discharge: Within 24 hours
Subjective/Interval History
-
Date of Service: December 08, 2023
Patient still refers some scrotal area pain especially on sitting still exhibiting some anxiety to go home urine stream is intermittent but seems improved
Objective Data
-
Vital Signs:
Vital Signs
Temp Pulse Resp BP Pulse Ox
98.3 F 79 20 128/74 97
12/07/23 23:33 12/07/23 23:33 12/07/23 23:33 12/07/23 23:33 12/07/23 23:33
I&O
12/07/23 12/08/23 12/09/23
06:59 06:59 06:59
Intake Total 3000 / 3000 1590 / 1590
Output Total 525 / 525 800 / 800
Balance 2475 / 2475 790 / 790
Review of Systems
-
History Source: Patient
Constitutional: Reports No Symptoms
EENT: Reports No Symptoms Reported
Respiratory: Reports No Symptoms
Genitourinary: Reports Difficulty Voiding and Hesitancy
Physical Exam
-
General: Well Developed
HEENT: Normocephalic
Respiratory: Clear to Auscultation
Cardiac: Regular Rhythm
Neuro: Awake and Alert
Data Reviewed
-
Total Time Spent with Patient (in minutes): 45
Labs: Labs Reviewed by me (White count has trended down to 12 yesterday)
[2023-12-08] MEDS: PLAQUENIL 400 MG PO (08:42)
[2023-12-08] MEDS: CRESTOR 5 MG PO (08:43)
[2023-12-08] MEDS: LEXAPRO 5 MG PO (08:43)
[2023-12-08] MEDS: FLOMAX 0.400000000000000022 MG PO (08:43)
[2023-12-08] MEDS: VITAMIN C 500 MG PO ×2 (08:43→20:15)
[2023-12-08] MEDS: COSOPT EYE DROPS 1 DROP LEFT EYE ×2 (08:43→20:16)
[2023-12-08] MEDS: ELIQUIS 5 MG PO ×2 (08:43→20:15)
[2023-12-08] MEDS: GLUCOPHAGE 500 MG PO (08:43)
[2023-12-08] MEDS: LOPRESSOR 25 MG PO ×2 (08:44→20:16)
[2023-12-08] MEDS: NORVASC 5 MG PO (08:44)
[2023-12-08] MEDS: TYLENOL 650 MG PO ×2 (08:51→18:45)
[2023-12-08 12:56] VITALS: BP 140/81
[2023-12-08 13:36] LABS: Glucose - Point of Care 120 mg/dl (70-99)
[2023-12-08 15:10] VITALS: BP 125/63
--- NOTE | 2023-12-08 15:24 | CM ---
met with patient at bedside.his urine and blood cx are negative.some scrotal pain-ordered tylenol.pt to eval patient.plan: home with no needs but eill await pt eval.patient signed imm letter,
[2023-12-08 17:43] LABS: Glucose - Point of Care 98 mg/dl (70-99)
[2023-12-08 21:59] LABS: Glucose - Point of Care 132 mg/dl (70-99)
[2023-12-08 23:35] VITALS: BP 127/65
[2023-12-09] MEDS: SYNTHROID 88 MCG PO (05:45)
[2023-12-09 05:48] VITALS: BMI 33.5
[2023-12-09 07:12] LABS: Glucose - Point of Care 124 mg/dl (70-99)
[2023-12-09 07:33] LABS: Hematocrit 38.2 % (39.0-52.0); Hemoglobin 13.6 g/dL (13.0-18.0); Mean Corp Hgb Conc. 35.6 g/dL (33.0-37.0); Mean Corpuscular Hgb 31.6 pg (27.0-31.0); Mean Corpuscular Volume 88.8 fL (80.0-94.0); Mean Platelet Volume 9.2 fL (7.4-10.4); Platelet Count 287 10^3/uL (130-400); Red Cell Dist. Width 13.1 % (11.5-14.5); White Blood Cell Count 7.9 10^3/uL (4.8-10.8)
[2023-12-09 07:44] VITALS: BP 160/86
--- NOTE | 2023-12-09 08:30 | W.DS.TRANS ---
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
-
Discharge Instructions:
Discharge Diagnosis/Procedures Perineal pain
Benign prostatic hypertrophy
Leukocytosis resolved
Prediabetes with glycohemoglobin of 6.7
Chronic left lower extremity DVT
Chronic myositis
Diet No restrictions
Activity No restrictions
Driving Restrictions As prior to admission
Instructions:
Stand-Alone Forms:
Changes to Home Medications: Yes
Discharge Medications:
DC Medications w/original date entered in [employer]
amlodipine 5 mg tablet 5 mg PO DAILY Blood pressure 08/02/19
folic acid 1 mg tablet 1 mg PO DAILY Supplement 08/02/19
hydroxychloroquine 200 mg tablet 400 mg PO DAILY myositis 08/02/19
levothyroxine 88 mcg tablet 88 mcg PO DAILY AT 0700 #0 tabs 10/10/22
apixaban 5 mg tablet (Eliquis) 5 mg PO BID 12/05/23
ascorbic acid (vitamin C) 500 mg tablet (Vitamin C) 500 mg PO BID 12/05/23
bimatoprost 0.01 % eye drops (Lumigan) 1 drp LEFT EYE QPM 12/05/23
carboxymethylcellulose 0.5 %-glycerin 0.9 % eye drops (Refresh Optive) 1 drp BOTH EYES BIDPRN PRN dryness 12/05/23
dorzolamide-timolol (PF) 2 %-0.5 % eye drops in a dropperette 1 drp LEFT EYE BID 12/05/23
escitalopram oxalate 5 mg tablet (Lexapro) 5 mg PO DAILY 12/05/23
hydrochlorothiazide 25 mg tablet 25 mg PO DAILY 12/05/23
magnesium oxide 500 mg capsule 500 mg PO DAILY 12/05/23
metoprolol tartrate 25 mg tablet 25 mg PO BID 12/05/23
netarsudil 0.02 % eye drops (Rhopressa) 1 drp LEFT EYE QPM 12/05/23
potassium 99 mg tablet 595 mg PO DAILY 12/05/23
rosuvastatin 5 mg tablet 5 mg PO DAILY 12/05/23
therapeutic multivitamin 1 tab PO DAILY 12/05/23
tamsulosin 0.4 mg capsule 0.4 mg PO DAILY #30 caps 12/09/23
Home Medication Changes
tamsulosin 0.4 mg capsule 0.4 mg PO DAILY #30 caps 12/09/23
Pending Results: No
Total time spent discharging patient (in min): 38
[2023-12-09] MEDS: VITAMIN C 500 MG PO (08:32)
[2023-12-09] MEDS: GLUCOPHAGE 500 MG PO (08:32)
[2023-12-09] MEDS: PLAQUENIL 400 MG PO (08:32)
[2023-12-09] MEDS: CRESTOR 5 MG PO (08:32)
[2023-12-09] MEDS: FLOMAX 0.400000000000000022 MG PO (08:32)
[2023-12-09] MEDS: LEXAPRO 5 MG PO (08:32)
[2023-12-09] MEDS: NORVASC 5 MG PO (08:33)
[2023-12-09] MEDS: LOPRESSOR 25 MG PO (08:33)
[2023-12-09] MEDS: ELIQUIS 5 MG PO (08:33)
[2023-12-09] MEDS: COSOPT EYE DROPS 1 DROP LEFT EYE (08:33)
[2023-12-09 10:49] VITALS: BP 133/68
--- NOTE | 2023-12-09 11:03 | W.DCSUMMARY ---
Discharge Summary
Discharge Data
Date of Admission: 12/05/23
Date of Discharge: 12/09/23
-
Pending Results: No
Hospital Course
83-year-old male with history of diabetes mellitus, CAD, myositis on chronic low-dose prednisone who presented to the hospital on December 04 due to voiding problems. He reports that he was at a [employer] market on Tuesday. There were a lot of customers.
He had prolonged sitting on a hard metal chair. He developed discomfort at the perineal area. He developed urinary urgency but with very little urine output. He felt that he was retaining urine and urine was dripping out. His condition worsened
and therefore he came to the hospital on December 04. White count 23.9.
CAT scan of the abdomen pelvis showed moderate and large prostate. Consultation was placed with urology with their opinion being possible underlying prostatitis but no active urinary tract infection with an asymptomatic tiny renal stone noting
imaging review.
He was started on ceftriaxone. He is also now on Flomax. Patient reports since being in the hospital the urinary stream is flowing better but still weak. No further urinary urgency. Deep perineal pain also improving. No history of UTI in the
past. No fevers or chills. No flank pain. The only chief complaint right now is diarrhea for the past 2 days. C. difficile negative. He was seen by the infectious disease service who concurred no evidence of any prostatitis or active urinary
tract infection and antibiotics were discontinued with resolution of diarrheal course.
It was felt that the patient's symptomatology was in relation to musculoskeletal and myositis with prior history of myositis and may have been aggravated by extended sitting on a hard surface he will continue be continued on tamsulosin and have
follow-up with the urology service as an outpatient
Discharge Plan
-
Patient Disposition: Home (Routine Discharge)
Discharge Diagnosis/Procedures: Perineal pain
Benign prostatic hypertrophy
Leukocytosis resolved
Prediabetes with glycohemoglobin of 6.7
Chronic left lower extremity DVT
Chronic myositis
Condition: Good
Diet: No restrictions
Activity: No restrictions
Driving Restrictions: As prior to admission
Referrals:
Yoel Morrissey MD [Active] -
Eddy Clark Jr., DO [Family Provider] - in two weeks
Prescriptions:
New
tamsulosin 0.4 mg Capsule
0.4 mg PO DAILY Qty: 30 0RF
Continued
amlodipine 5 MG tablet
5 mg PO DAILY
folic acid 1 MG tablet
1 mg PO DAILY
hydroxychloroquine 200 MG tablet
400 mg PO DAILY
Hold Instructions: Resume on 07/14/22. until you complete the antibitoic
levothyroxine 88 mcg Tablet
88 mcg PO DAILY AT 0700 Qty: 0 0RF
therapeutic multivitamin Tablet
1 tab PO DAILY
potassium 99 mg Tablet
595 mg PO DAILY
ascorbic acid (vitamin C) [Vitamin C] 500 mg Tablet
500 mg PO BID
dorzolamide-timolol (PF) 2-0.5 % dropperette
1 drp LEFT EYE BID
Eliquis 5 mg Tablet
5 mg PO BID
Patient Comments:
patient using the [place] [facility]
Rhopressa 0.02 % Drops
1 drp LEFT EYE QPM
hydrochlorothiazide 25 mg Tablet
25 mg PO DAILY
rosuvastatin 5 mg Tablet
5 mg PO DAILY
escitalopram oxalate [Lexapro] 5 mg Tablet
5 mg PO DAILY
metoprolol tartrate 25 mg Tablet
25 mg PO BID
Refresh Optive 0.5-0.9 % Drops
1 drp BOTH EYES BIDPRN PRN (Reason: dryness)
magnesium oxide 500 mg Capsule
500 mg PO DAILY
Lumigan 0.01 % Drops
1 drp LEFT EYE QPM
Discharge Orders:
Discharge Patient (As Directed); Ordered 12/09/23
Ordered By: Hernan Tillman
Discharge Date and Time
Print Language: CITIZEN OF [place]
--- NOTE | 2023-12-09 12:04 | PTCARENOTE ---
pt discharged home this afternoon by this nurse. IV access d/c and instructions for care discussed at bedside with patient. Vitals taken within 4 hour discharge window. see worklist for proper documentation. pt picked up by at [facility]
spot and was taken down via wheelchair.
--- NOTE | 2023-12-09 13:48 | CM ---
met with patient at bedside.patient is stable for discharge.patient signed imm letter,family to transport home.
== END 2023-12-09 12:14 | disposition home or self-care (01) | DRG 726 ==
LOC: 2 NORTH 22:17
PROVIDERS: Clinical Nurse Specialist Family Health; Emergency Medicine; Internal Medicine; Physician Assistant Medical; ADMITTING PHYSICIAN Hospitalist; ATTENDING PHYSICIAN Internal Medicine; CONSULT PHYSICIAN Specialist; CONSULT PHYSICIAN Student in an Organized Health Care Education/Training Program; EMERGENCY PHYSICIAN Emergency Medicine; FAMILY PHYSICIAN Family Medicine
DX: N40.1 Benign prostatic hyperplasia with lower urinary tract symptoms (principal); I82.502 Chronic embolism and thrombosis of unspecified deep veins of left lower extremity; N20.0 Calculus of kidney; E11.9 Type 2 diabetes mellitus without complications; M60.9 Myositis, unspecified; I10 Essential (primary) hypertension; R35.0 Frequency of micturition; R39.15 Urgency of urination; E78.00 Pure hypercholesterolemia, unspecified; E03.9 Hypothyroidism, unspecified; I25.10 Atherosclerotic heart disease of native coronary artery without angina pectoris; Z95.1 Presence of aortocoronary bypass graft
CPT/HCPCS: 74176; 80048; 80053; 81003; 81015; 82962; 83036; 83605; 85025; 85027; 87040; 87070; 87086; 87324; 87449; 96361; 96374; 99285

== ENCOUNTER → 2023-12-23 07:01 | Outpatient (REF) | payer MEDICARE, OTHER, SELFPAY | LOC: PAVMRI 07:01 | PROVIDERS: ATTENDING PHYSICIAN Family Medicine | DX: M51.26 Other intervertebral disc displacement, lumbar region (principal) | CPT/HCPCS: 72158; A9575 ==

== ENCOUNTER → 2024-09-03 13:41 | Outpatient (REF) | payer MEDICARE, OTHER, SELFPAY | LOC: DHVS 13:41 | PROVIDERS: ATTENDING PHYSICIAN Physician Assistant; FAMILY PHYSICIAN Family Medicine | DX: S81.802D Unspecified open wound, left lower leg, subsequent encounter (principal) | CPT/HCPCS: 93922; 93925 ==

== ENCOUNTER → 2025-02-20 08:51 | Outpatient (REF) | payer MEDICARE, OTHER, SELFPAY ==
[2025-02-20 09:37] LABS: Hematocrit 45.8 % (39.0-52.0); Hemoglobin 15.9 g/dL (13.0-18.0); Mean Corp Hgb Conc. 34.7 g/dL (33.0-37.0); Mean Corpuscular Volume 90.3 fL (80.0-94.0); Nucleated Red Blood Cells % 0 % (-); Platelet Count 199 10^3/uL (130-400); Red Cell Dist. Width 13.2 % (11.5-14.5); Reticulocyte Count 1.5 % (0.4-2.8)
[2025-02-20 09:56] LABS: Urine Character Clear (Clear)
[2025-02-20 10:01] LABS: ALT (SGPT) 30 U/L (0-50); AST (SGOT) 30 U/L (17-59); Albumin 4.5 g/dl (3.5-5.0); Alkaline Phosphatase 90 U/L (38-126); Amylase 51 U/L (30-110); Blood Urea Nitrogen 22 mg/dl (9-20); Calcium 9.9 mg/dl (8.4-10.2); Carbon Dioxide 29 mmol/L (22-30); Chloride 101 mmol/L (98-107); GGTP 24 U/L (15-73); Glucose 127 mg/dl (70-99); HDL Cholesterol 50 mg/dl; Iron 131 ug/dl (49-181); LDL Cholesterol, Calculated 61 mg/dl; Lipase 69 U/L (23-300); Magnesium 2.0 mg/dl (1.6-2.3); Potassium 4.3 mmol/L (3.5-5.1); Sodium 137 mmol/L (135-145); Total Protein 7.1 g/dl (6.3-8.2); Uric Acid 6.6 mg/dl (3.5-8.5); Very Low Density Lipoprotein 21 mg/dl (0-30); eGFR > 60.00
[2025-02-20 10:07] LABS: C-Reactive Protein < 5.00 mg/L (0.0-10.00)
[2025-02-20 10:10] LABS: Total Iron Binding Capacity 341 ug/dl (261-462)
[2025-02-20 10:22] LABS: Vitamin D, 25-OH*** 48.9 ng/mL (30-80)
[2025-02-20 10:35] LABS: TSH 1.59 uIU/ml (0.47-4.68)
[2025-02-20 10:40] LABS: Ferritin 84.9 ng/ml (17.9-464.0)
[2025-02-20 11:02] LABS: Urine Squamous Cell 0-2 /LPF (Few)
[2025-02-20 11:05] LABS: Urine Red Blood Cell 0-2 /HPF (0-2)
[2025-02-20 11:11] LABS: Folate > 20.0 ng/ml (2.76-20); Vitamin B12 934 pg/ml (239-931)
[2025-02-20 11:57] LABS: Glycohemoglobin (HgbA1c) 6.3 % (4.0-5.6)
[2025-02-21 11:36] LABS: Rheumatoid Agglutinin Less Than 10 IU (<10 IU)
== END ==
LOC: REG 08:51
PROVIDERS: ATTENDING PHYSICIAN Family Medicine
DX: E11.9 Type 2 diabetes mellitus without complications (principal); E78.5 Hyperlipidemia, unspecified; R94.5 Abnormal results of liver function studies; R74.8 Abnormal levels of other serum enzymes; E03.9 Hypothyroidism, unspecified; M10.9 Gout, unspecified; E60 Dietary zinc deficiency; E55.9 Vitamin D deficiency, unspecified; M12.9 Arthropathy, unspecified; D64.9 Anemia, unspecified; N39.0 Urinary tract infection, site not specified; E83.42 Hypomagnesemia; E61.1 Iron deficiency; E53.8 Deficiency of other specified B group vitamins; D51.9 Vitamin B12 deficiency anemia, unspecified
CPT/HCPCS: 36415; 80053; 80061; 81003; 81015; 82150; 82306; 82550; 82607; 82728; 82746; 82977; 83036; 83540; 83550; 83690; 83735; 84439; 84443; 84550; 84630; 85025; 85045; 85652; 86140; 86430; 87086; 87147; 87186

== ENCOUNTER → 2025-04-01 13:17 | Outpatient (REF) | payer MEDICARE, OTHER, SELFPAY ==
[2025-04-01 13:40] LABS: Urine Character Clear (Clear)
== END ==
LOC: REG 13:17
PROVIDERS: ATTENDING PHYSICIAN Family Medicine
DX: N39.0 Urinary tract infection, site not specified (principal)
CPT/HCPCS: 81003; 87086